=== PATIENT | male | born 1965 | race Caucasian/White ===

== ENCOUNTER 2017-06-23 21:40 | Inpatient (IN) | payer OTHER ==
[~2017-06-23] VITALS: Ht 177.8 cm; Wt 90.7 kg
[2017-06-23] MEDS ORDERED: SODIUM CHLORIDE 0.9% 1,000 ML IV ONE (23:16)
[2017-06-23 23:45] LABS: BASOPHILS % 0.4 % (0.0-2.0); EOSINOPHILS % 2.6 % (0.0-5.0); HEMOGLOBIN. 14.6 g/dL (14.0-18.0); LYMPHOCYTES % 14.5 % (20.0-50.0); MEAN CORPUSCULAR HEMOGLOBIN 27.4 pg (28.0-32.0); MEAN CORPUSCULAR VOLUME 80.3 fL (80.0-94.0); MEAN PLATELET VOLUME 9.4 fl (7.4-10.4); MONOCYTES % 8.2 % (2.0-8.0); NEUTROPHILS % 74.3 % (40.0-76.0); PLATELET 191 x1000/uL (130-400); RED BLOOD CELL COUNT 5.35 mill/uL (4.7-6.1); RED CELL DISTRIBUTION WIDTH 13.2 % (11.6-14.6)
[2017-06-24] LABS: CARBON DIOXIDE 29 mEq/L (21-32); CHLORIDE 103 mEq/L (98-107); ETHANOL BLOOD < 10 mg/dL; TROPONIN I < 0.02 ng/mL (0.00-0.04)
[2017-06-24] MEDS ORDERED: ASPIRIN 325MG TABLET PO ONE (02:45)
[2017-06-24] MEDS ORDERED: SODIUM CHLORIDE 0.9% 1,000 ML IV SCH (03:48)
[2017-06-24 04:20] LABS: *AMPHETAMINES SCREEN URINE NEGATIVE (NEGATIVE); *BARBITURATES SCREEN URINE NEGATIVE (NEGATIVE); *BENZODIAZEPINES SCREEN URINE NEGATIVE (NEGATIVE); *COCAINE SCREEN URINE NEGATIVE (NEGATIVE); CANNABINOID URINE SCREEN NEGATIVE (NEGATIVE); METHADONE URINE SCREEN NEGATIVE (NEGATIVE); OPIATES URINE SCREEN NEGATIVE (NEGATIVE); PHENCYCLIDINE URINE SCREEN NEGATIVE (NEGATIVE)
[2017-06-24 08:00] VITALS: BP 103/61
[2017-06-24 08:05] VITALS: BP 103/61
[2017-06-24] MEDS ORDERED: NA PHOS,M-B/NA PHOS,DI-BA ENEMA 118ML PR PRN (08:45)
[2017-06-24] MEDS ORDERED: DOCUSATE SODIUM 100MG CAPSULE PO PRN (08:45)
[2017-06-24] MEDS ORDERED: ACETAMINOPHEN 325MG TABLET PO PRN (08:45)
[2017-06-24] MEDS ORDERED: GUAIFENESIN 200MG/10ML SUGAR FREE UDC PO PRN (08:45)
[2017-06-24] MEDS ORDERED: ONDANSETRON HCL 4MG/2ML VIAL IV PRN (08:45)
[2017-06-24] MEDS ORDERED: CLONIDINE 0.1MG TABLET PO PRN (08:45)
[2017-06-24] MEDS ORDERED: DIPHENHYDRAMINE 50MG/ML VIAL IV PRN (08:45)
[2017-06-24] MEDS ORDERED: TRAMADOL 50MG TABLET PO PRN (08:45)
[2017-06-24] MEDS ORDERED: IPRATROPIUM/ALBUTEROL 0.5-3(2.5)MG/3ML NEB INH PRN (08:45)
[2017-06-24] MEDS ORDERED: KETOROLAC 30MG/ML VIAL IV PRN (08:45)
[2017-06-24] MEDS ORDERED: MAGNESIUM/ALUMINUM HYDROXIDE/SIMETHICONE 30ML UDC PO PRN (08:45)
[2017-06-24 09:29] VITALS: BP 103/61
[2017-06-24] MEDS: PANTOPRAZOLE SODIUM 40 MG/VIAL IV SCH (11:22)
[2017-06-24] MEDS: ENOXAPARIN 30MG/0.3ML SYR SUBCUT SCH ×2 (11:23→21:06)
[2017-06-24] MEDS: ASPIRIN 325MG EC TABLET PO SCH (11:23)
[2017-06-24 12:00] VITALS: BP 115/64
[2017-06-24 16:34] VITALS: BP 114/72
[2017-06-24 17:46] LABS: CREATINE KINASE 95 IU/L (39-308); CREATINE KINASE MB FRACTION 0.9 ng/mL (0.5-3.6); TROPONIN I < 0.02 ng/mL (0.00-0.04)
[2017-06-24 20:00] VITALS: BP 119/72
[2017-06-24] MEDS ORDERED: ZOLPIDEM TARTRATE 5MG TABLET PO PRN (21:00)
[2017-06-25] VITALS: BP 110/56
[2017-06-25 00:55] LABS: CREATINE KINASE 85 IU/L (39-308); CREATINE KINASE MB FRACTION 0.5 ng/mL (0.5-3.6)
[2017-06-25 00:59] LABS: TROPONIN I < 0.02 ng/mL (0.00-0.04)
[2017-06-25 04:00] VITALS: BP 103/64
[2017-06-25 08:25] VITALS: BP 108/60
[2017-06-25] MEDS: ASPIRIN 325MG EC TABLET PO SCH (09:01)
[2017-06-25] MEDS: PANTOPRAZOLE SODIUM 40 MG/VIAL IV SCH (09:01)
[2017-06-25] MEDS: ENOXAPARIN 30MG/0.3ML SYR SUBCUT SCH (09:02)
[2017-06-25 12:11] VITALS: BP 122/66
[2017-06-25 15:07] VITALS: BP 125/76
== END 2017-06-25 15:43 | disposition home or self-care (01) | DRG 312 ==
LOC: ER 22:02 → 6WST 06-24 03:49 → EDBEDREQ 06-24 04:11 → EDBEDREQTM 06-24 04:11 → ENRESERV 06-24 07:00
PROVIDERS: ADMIT Internal Medicine; ATTEND Internal Medicine
DX: R55 Syncope and collapse (principal); Z79.82 Long term (current) use of aspirin; Z79.899 Other long term (current) drug therapy
CPT/HCPCS: 36415; 70450; 70551; 71010; 80053; 80061; 80305; 82550; 82553; 83036; 84484; 85025; 93005; 93970; 97161; 97166; 99285; C9113; G0482; J1650; J7030